=== PATIENT | male | born 1950 | race Caucasian/White ===

== ENCOUNTER → 2021-01-26 | Outpatient (REF) | payer MEDICARE ==
[2021-01-26 18:03] LABS: FERRITIN 131 NG/ML (26-388); IRON (FE) 60 UG/DL (65-175); PERCENT SATURATION 21.4 % (19.7-50.0); TOTAL IRON BINDING CAPACITY 280 UG/DL (250-450); TOTAL PROTEIN 7.3 GM/DL (6.4-8.2)
[2021-01-26 18:10] LABS: FOLATE 20.7 NG/ML; VITAMIN B12 LEVEL 401 PG/ML
[2021-01-27 12:20] LABS: ALBUMIN 4.71 GM/DL (3.29-5.55); ALBUMIN % 64.5 % (55.8-66.1); ALPHA-1-GLOBULIN % 3.5 % (2.9-4.9); ALPHA-1-GLOBULINS 0.26 GM/DL (0.17-0.41); ALPHA-2-GLOBULINS 0.68 GM/DL (0.42-0.99); ALPHA-2-GLOBULINS % 9.3 % (7.1-11.8); BETA-1-GLOBULINS 0.38 GM/DL (0.28-0.60); BETA-1-GLOBULINS % 5.2 % (4.7-7.2); BETA-2-GLOBULINS % 4.1 % (3.2-6.5); GAMMA GLOBULIN % 13.4 % (11.1-18.8); GAMMA GLOBULINS 0.98 GM/DL (0.65-1.58)
[2021-01-28 18:06] LABS: FREE KAPPA LIGHT CHAINS SERUM 43.2 mg/L (3.3-19.4); FREE LAMBDA LIGHT CHAINS SERUM 26.4 mg/L (5.7-26.3); KAPPA/LAMBDA RATIO SERUM 1.64 (0.26-1.65)
== END ==
LOC: M LAB REF 16:42
PROVIDERS: ATTEND Internal Medicine Nephrology
DX: D64.9 Anemia, unspecified (principal)

== ENCOUNTER → 2021-09-07 | Outpatient (REF) | payer MEDICARE | LOC: M LAB REF 13:23 | PROVIDERS: ATTEND Internal Medicine Nephrology | DX: N18.2 Chronic kidney disease, stage 2 (mild) (principal) ==

== ENCOUNTER → 2022-01-05 | Outpatient (REF) | payer MEDICARE ==
[2022-01-05 17:42] LABS: PERCENT SATURATION 20.5 % (19.7-50.0)
== END ==
LOC: M LAB REF 16:43
PROVIDERS: ATTEND Nurse Practitioner Family
DX: D50.9 Iron deficiency anemia, unspecified (principal)

== ENCOUNTER → 2022-11-06 | Outpatient (REF) | payer MEDICARE ==
[2022-11-06 18:33] LABS: PERCENT SATURATION 24.7 % (19.7-50.0)
== END ==
LOC: M LAB REF 17:23
PROVIDERS: ATTEND Nurse Practitioner Family
DX: D50.9 Iron deficiency anemia, unspecified (principal)

== ENCOUNTER → 2024-02-26 | Outpatient (REF) | payer MEDICARE ==
[2024-02-26 18:29] LABS: PERCENT SATURATION 13.9 % (19.7-50.0)
== END ==
LOC: M LAB REF 17:19
PROVIDERS: ATTEND Nurse Practitioner Family
DX: D50.9 Iron deficiency anemia, unspecified (principal)